=== PATIENT | female | born 1940 | race African-American/Black ===

== ENCOUNTER → 2024-09-26 | Outpatient (CLI) | payer MEDICARE, SELFPAY ==
--- NOTE | 2024-09-26 16:19 | XR_ITS ---
Examination: Knee, right , 3 views Technique: Knee AP, lateral, oblique 3 views Date and time of exam: September 26, 2024 1623 hours INDICATIONS: Right knee pain and weakness beginning 3 months ago. FINDINGS: Moderate to advanced tricompartment osteoarthritis, most severe lateral and patellofemoral joints No fracture or dislocation Moderate osteopenia IMPRESSION: Moderate to advanced tricompartment osteoarthritis
== END | disposition home or self-care (01) ==
PROVIDERS: PCP Family Medicine; Referring Provider Chiropractor; Visit Provider Chiropractor
DX: M17.11 Unilateral primary osteoarthritis, right knee (principal)
CPT/HCPCS: 73562

== ENCOUNTER → 2024-11-19 | Outpatient (CLI) | payer MEDICARE, SELFPAY ==
--- NOTE | 2024-11-19 07:30 | XR_ITS ---
Exam: MRI knee without contrast, October 22, 2024 at 0733 hrs. Indications: Anterior knee pain with bending and straightening beginning one year ago Date and time of exam: November 19, 2024 0733 hrs. Technique: Multiple axial, coronal, and sagittal sections on the knee have been obtained. T2-Weighted sagittal, fat-suppressed images, TR 3,500, TE 62, T2 weighted coronal fat-saturated images, TR 3,500, TE 62 Proton density sagittal sections, TR 1800, TE 31. T-1 weighted coronal images, TR 524, TE 13.0 Findings: Medial meniscus anterior horn truncation intermargin. Medial meniscus, body truncation intermargin extruded from the joint space. Posterior horn medial meniscus horizontal linear tear communicating inferior articular surface. Lateral meniscus anterior horn vertical tear Lateral meniscus, body is horizontal tear Posterior horn lateral meniscus horizontal linear tear Anterior cruciate ligament moderate sprain Posterior cruciate ligament appears intact. Knee effusion is moderate. Quadriceps and patellar tendons appear intact. There is no evidence of tendinosis. Inflammatory change or fracture of Hoffa's fat pad is not seen. Medial patellar facet demonstrates severe thinning. Lateral patellar facet cartilage demonstrates severe thinning. Trochlear cartilage demonstrates severe thinning. Marrow signal adequate. Medial collateral ligament appears intact. No meniscocapsular separation is seen. Illiotibial band and fibular collateral ligament are intact. Biceps femoris tendons appear intact. Medial femoral condylar articular cartilage demonstrates severe thinning. Lateral femoral condylar articular cartilage demonstratesmild thinning. Tibial plateau cartilage demonstrates severe medial thinning. Impression: Extensive medial lateral meniscus tears Severe thinning cartilage medial patellofemoral joints Moderate sprain anterior cruciate ligament
== END | disposition home or self-care (01) ==
LOC: SMRI 07:20
PROVIDERS: PCP Orthopaedic Surgery; Referring Provider Orthopaedic Surgery; Visit Provider Orthopaedic Surgery
DX: S83.281A Other tear of lateral meniscus, current injury, right knee, initial encounter (principal); S83.241A Other tear of medial meniscus, current injury, right knee, initial encounter; S83.511A Sprain of anterior cruciate ligament of right knee, initial encounter; X58.XXXA Exposure to other specified factors, initial encounter
CPT/HCPCS: 73721